=== PATIENT | female | born 1965 | race Caucasian/White ===

== ENCOUNTER 2016-06-08 17:34 | Inpatient (IN) | payer MEDICAID ==
[~2016-06-08] VITALS: Ht 167.6 cm; Wt 80.7 kg
[~2016-06-08 17:34] MED LIST: COLACE100 MG PO; FERROUS SULFAT325 M2 PO; FLEXERIL10 MG PO; IBUPROFEN400 MG PO; KEP500 PO; LISINOPRIL2.5 MG PO; METFORMIN HCL500 MG PO; METOPROLOL TART25 M1 PO; PRILOSEC20 MG PO; SIMVASTATIN20 M1 PO; ZES20 PO
[2016-06-08 20:19] LABS: PLATELET COUNT 222 x10^3mcL (130-400); RED CELL DISTRIBUTION WIDTH 13.7 % (11.5-14.5)
[2016-06-08 20:48] LABS: CALCIUM 8.2 mg/dL (8.5-10.1); CARBON DIOXIDE 29.1 mmol/L (21-32); CHLORIDE SERUM 106 mmol/L (98-107); CREATININE SERUM 0.9 mg/dL (0.6-1.0); GFR1 > 60 mL/min; GLUCOSE SERUM 161 mg/dL (74-106); POTASSIUM SERUM 3.6 mmol/L (3.5-5.1); SODIUM SERUM 141 mmol/L (136-145)
[2016-06-08 20:53] LABS: ALKALINE PHOSPHATASE 67 U/L (46-116); ALT/SGPT 25 U/L (14-59); AST/SGOT 17 U/L (15-37); BILIRUBIN TOTAL 0.1 mg/dL (0.20-1.00); MAGNESIUM 1.7 mg/dL (1.8-2.4)
[2016-06-08 20:54] LABS: ALBUMIN 2.9 g/dL (3.4-5.0); TOTAL PROTEIN, SERUM 6.1 g/dL (6.4-8.2)
[2016-06-08 20:55] LABS: rbc morphology (normal/abnorm) ABNORMAL (NORMAL)
[2016-06-08 21:53] LABS: PHOSPHOROUS 3.4 mg/dL (2.5-4.9)
[2016-06-08 21:53] LABS: AMPHETAMINE QUAL UR NONE DETECTED (NEG <=1000)
[2016-06-08 21:54] VITALS: BP 114/57
[2016-06-08 21:57] LABS: T3 TOTAL 0.9 ng/mL
[2016-06-08 22:01] LABS: FREE T4 1.02 ng/dL (0.76-1.46); FREE THYROXINE INDEX 2.6 ug/dL (1.4-4.5); T4(THYROXINE) 8.3 ug/dL (4.7-13.3)
[2016-06-08 22:55] LABS: RED BLOOD CELLS 1.99 M/mm3 (4.10-5.10)
[2016-06-08 23:04] LABS: IRON 57 ug/dL (50-170); TOTAL IRON BINDING CAPACITY 376 ug/dL (250-450)
[2016-06-09] VITALS (10 sets, daily range): BP systolic 98–128; BP diastolic 53–75
[2016-06-09 00:59] LABS: BASOPHIL % 1.6 % (0-2); PLATELET COUNT 218 x10^3mcL (130-400); RED CELL DISTRIBUTION WIDTH 13.2 % (11.5-14.5)
[2016-06-09 02:37] LABS: UA SPECIFIC GRAVITY <=1.005 (1.005-1.035); microscopic required? YES; urine erythrocyte 3+ (NEGATIVE)
[2016-06-09 05:21] LABS: rbc morphology (normal/abnorm) ABNORMAL (NORMAL); tear drop cell (dacryocyte) 1+
[2016-06-09 06:43] LABS: CALCIUM 8.2 mg/dL (8.5-10.1); CARBON DIOXIDE 26.4 mmol/L (21-32); CHLORIDE SERUM 107 mmol/L (98-107); CREATININE SERUM 0.8 mg/dL (0.6-1.0); GFR1 > 60 mL/min; GLUCOSE SERUM 161 mg/dL (74-106); MAGNESIUM 2.4 mg/dL (1.8-2.4); POTASSIUM SERUM 4.2 mmol/L (3.5-5.1); SODIUM SERUM 142 mmol/L (136-145)
[2016-06-09 07:09] LABS: BASOPHIL % 1.5 % (0-2); PLATELET COUNT 224 x10^3mcL (130-400); RED CELL DISTRIBUTION WIDTH 13.6 % (11.5-14.5)
[2016-06-09 08:29] LABS: rbc morphology (normal/abnorm) ABNORMAL (NORMAL)
[2016-06-09 16:33] LABS: BASOPHIL % 0.8 % (0-2); PLATELET COUNT 241 x10^3mcL (130-400)
[2016-06-09 16:38] LABS: RED CELL DISTRIBUTION WIDTH 14.8 % (11.5-14.5)
[2016-06-10 05:37] VITALS: BP 100/56
[2016-06-10 06:24] LABS: BASOPHIL % 1.3 % (0-2); PLATELET COUNT 222 x10^3mcL (130-400)
[2016-06-10 06:30] LABS: CALCIUM 8.1 mg/dL (8.5-10.1); CARBON DIOXIDE 26.1 mmol/L (21-32); CHLORIDE SERUM 108 mmol/L (98-107); CREATININE SERUM 0.8 mg/dL (0.6-1.0); GFR1 > 60 mL/min; GLUCOSE SERUM 131 mg/dL (74-106); MAGNESIUM 2.2 mg/dL (1.8-2.4); PHOSPHOROUS 4.3 mg/dL (2.5-4.9); SODIUM SERUM 142 mmol/L (136-145)
[2016-06-10 06:31] LABS: ALBUMIN 2.7 g/dL (3.4-5.0)
[2016-06-10 06:37] LABS: RED CELL DISTRIBUTION WIDTH 14.6 % (11.5-14.5)
[2016-06-10 09:42] VITALS: BP 106/56
[2016-06-10] MEDS ORDERED: FERG PO (09:43)
[2016-06-10] MEDS ORDERED: ASCORBIC ACID500 M1 PO (09:44)
[2016-06-10 13:16] VITALS: BP 140/62
[2016-06-10 13:31] VITALS: BP 140/62
[2016-06-10] MEDS ORDERED: METFORMIN HCL500 MG PO (14:36)
[2016-06-10] MEDS ORDERED: METFORMIN500 M1 PO (14:38)
== END 2016-06-10 15:17 | disposition home or self-care (01) | DRG 517 ==
LOC: ED 17:34 → DU 20:55
PROVIDERS: Emergency Medicine; Obstetrics & Gynecology; ADMIT Family Medicine
PROC: 0UDB7ZZ Extraction of Endometrium, Via Natural or Artificial Opening (ICD-10-PCS; principal; 2016-06-09 16:00)
DX: N92.1 Excessive and frequent menstruation with irregular cycle (principal); E43 Unspecified severe protein-calorie malnutrition; N17.0 Acute kidney failure with tubular necrosis; D68.69 Other thrombophilia; D62 Acute posthemorrhagic anemia; E83.42 Hypomagnesemia; E83.51 Hypocalcemia; I34.0 Nonrheumatic mitral (valve) insufficiency; E11.9 Type 2 diabetes mellitus without complications; N88.8 Other specified noninflammatory disorders of cervix uteri; I36.1 Nonrheumatic tricuspid (valve) insufficiency; M94.0 Chondrocostal junction syndrome [Tietze]; I10 Essential (primary) hypertension; E78.5 Hyperlipidemia, unspecified; Z68.28 Body mass index [BMI] 28.0-28.9, adult; Z79.84 Long term (current) use of oral hypoglycemic drugs; Z79.1 Long term (current) use of non-steroidal anti-inflammatories (NSAID)
CPT/HCPCS: 80307; 82962; 83880; 84439; 94150; C1758; J1885; J2250; J2704; J3475; J7030; J7040; P9016; Q0092; Q0163

== ENCOUNTER 2019-01-23 07:57 | Emergency (ER) | payer OTHER, MEDICAID ==
[~2019-01-23] VITALS: Ht 154.9 cm; Wt 77.1 kg
[~2019-01-23 07:57] MED LIST changes: +ASCORBIC ACID500 M1 PO; +FERG PO; +METFORMIN500 M1 PO
[2019-01-23 08:06] VITALS: Ht 154.9 cm; Wt 77.1 kg
[2019-01-23 11:40] VITALS: BP 120/81
== END 2019-01-23 11:40 | disposition home or self-care (01) ==
LOC: ED 07:57
DX: S13.4XXA Sprain of ligaments of cervical spine, initial encounter (principal); S40.022A Contusion of left upper arm, initial encounter; R51 Headache; E11.9 Type 2 diabetes mellitus without complications; I10 Essential (primary) hypertension; E78.00 Pure hypercholesterolemia, unspecified; E66.9 Obesity, unspecified; Z68.32 Body mass index [BMI] 32.0-32.9, adult; Z90.49 Acquired absence of other specified parts of digestive tract; Z98.51 Tubal ligation status; Z86.2 Personal history of diseases of the blood and blood-forming organs and certain disorders involving the immune mechanism; V43.52XA Car driver injured in collision with other type car in traffic accident, initial encounter; Y93.I9 Activity, other involving external motion; Y92.488 Other paved roadways as the place of occurrence of the external cause; Y99.8 Other external cause status

== ENCOUNTER 2019-02-11 20:01 | Emergency (ER) | payer MEDICAID ==
[~2019-02-11] VITALS: Ht 162.6 cm; Wt 76.7 kg
[2019-02-11 20:12] VITALS: Ht 162.6 cm; Wt 76.7 kg
[2019-02-11 20:52] LABS: BASOPHIL % 0.8 % (0-2); PLATELET COUNT 340 x10^3mcL (130-400)
[2019-02-11 20:53] LABS: RED CELL DISTRIBUTION WIDTH 18.1 % (11.5-14.5)
[2019-02-11 21:03] LABS: CALCIUM 8.9 mg/dL (8.5-10.1); CARBON DIOXIDE 25.7 mmol/L (21-32); CHLORIDE SERUM 100 mmol/L (98-107); CREATININE SERUM 0.8 mg/dL (0.6-1.0); GFR1 > 60 mL/min; GLUCOSE SERUM 172 mg/dL (74-106); POTASSIUM SERUM 3.7 mmol/L (3.5-5.1); SODIUM SERUM 137 mmol/L (136-145)
[2019-02-11 21:07] LABS: ALBUMIN 3.5 g/dL (3.4-5.0); ALKALINE PHOSPHATASE 138 U/L (46-116); ALT/SGPT 30 U/L (14-59); AST/SGOT 16 U/L (15-37); BILIRUBIN TOTAL 0.18 mg/dL (0.20-1.00); LIPASE 293 IU/L (73-393); TOTAL PROTEIN, SERUM 7.8 g/dL (6.4-8.2)
[2019-02-11 23:15] VITALS: BP 133/80
== END 2019-02-11 23:34 | disposition home or self-care (01) ==
LOC: ED 20:01
DX: K52.9 Noninfective gastroenteritis and colitis, unspecified (principal); I10 Essential (primary) hypertension; E11.9 Type 2 diabetes mellitus without complications; E78.00 Pure hypercholesterolemia, unspecified; Z98.890 Other specified postprocedural states; Z90.49 Acquired absence of other specified parts of digestive tract
CPT/HCPCS: J2270; J2405; J7030

== ENCOUNTER 2019-06-07 13:55 | Emergency (ER) | payer MEDICAID ==
[~2019-06-07] VITALS: Ht 154.9 cm; Wt 78.9 kg
[2019-06-07 14:04] VITALS: Ht 154.9 cm; Wt 78.9 kg
[2019-06-07 15:13] LABS: BASOPHIL % 1.1 % (0-2); PLATELET COUNT 255 x10^3mcL (130-400)
[2019-06-07 15:19] LABS: UA SPECIFIC GRAVITY 1.015 (1.005-1.035); microscopic required? YES; urine erythrocyte 2+ (NEGATIVE)
[2019-06-07 15:22] LABS: CALCIUM 9.5 mg/dL (8.5-10.1); CARBON DIOXIDE 32.1 mmol/L (21-32); CHLORIDE SERUM 105 mmol/L (98-107); CREATININE SERUM 0.7 mg/dL (0.6-1.0); GFR1 > 60 mL/min; GLUCOSE SERUM 119 mg/dL (74-106); POTASSIUM SERUM 4.1 mmol/L (3.5-5.1); SODIUM SERUM 143 mmol/L (136-145)
[2019-06-07 15:35] LABS: ALBUMIN 3.5 g/dL (3.4-5.0); ALKALINE PHOSPHATASE 132 U/L (46-116); ALT/SGPT 35 U/L (14-59); AST/SGOT 18 U/L (15-37); BILIRUBIN TOTAL 0.2 mg/dL (0.20-1.00); LIPASE 510 IU/L (73-393); T4(THYROXINE) 8.6 ug/dL (4.7-13.3); TOTAL PROTEIN, SERUM 7.6 g/dL (6.4-8.2)
[2019-06-07 16:51] VITALS: BP 127/71
== END 2019-06-07 16:52 | disposition home or self-care (01) ==
LOC: ED 13:55
PROVIDERS: Emergency Medicine
DX: N39.0 Urinary tract infection, site not specified (principal); I10 Essential (primary) hypertension; E78.00 Pure hypercholesterolemia, unspecified; E66.9 Obesity, unspecified; E11.65 Type 2 diabetes mellitus with hyperglycemia; Z68.32 Body mass index [BMI] 32.0-32.9, adult
CPT/HCPCS: J0696; J1885; J7030